=== PATIENT | female | born 1970 | race Caucasian/White ===

== ENCOUNTER → 2017-02-05 | Outpatient (CLI) | payer OTHER ==
[2017-02-05 19:43] LABS: Basophils % (A) 1 %; CH 32.3; CHCM 32.9; Eosinophils # (A) 0.1 k/uL (0-0.7); Eosinophils % (A) 2 %; HCT 40.7 % (34.0-46.0); HDW 2.37; HGB 13.6 gm/dL (11.4-16.0); Luc # (Auto) 0.11; Luc % (Auto) 2; Lymphocytes # (A) 1.4 k/uL (1.0-4.8); Lymphocytes % (A) 30 %; MCH 32.9 pg (25.0-35.0); MCHC 33.5 g/dL (31.0-37.0); MCV 98.3 fL (80.0-100.0); Mean Platelet Volume 8.2; Monocytes # (A) 0.3 k/uL (0-1.0); Monocytes % (A) 7 %; Neutrophils # (A) 2.8 k/uL (1.3-7.7); Neutrophils % (A) 58 %; RBC 4.14 m/uL (3.80-5.40); RDW 12.2 % (11.5-15.5); WBC 4.9 k/uL (3.8-10.6); WBC (Perox) 4.92
[2017-02-05 19:48] LABS: ALT 43 U/L (9-52); AST 28 U/L (14-36); Alkaline Phosphatase 61 U/L (38-126); Anion Gap 11 mmol/L; Blood Urea Nitrogen 6 mg/dL (7-17); Calcium 9.6 mg/dL (8.4-10.2); Carbon Dioxide 26 mmol/L (22-30); Chloride 101 mmol/L (98-107); Cholesterol 224 mg/dL (<200); Glucose 79 mg/dL (74-99); HDL Cholesterol 62 mg/dL (40-60); Non-African American GFR(MDRD) >60 (>60 ml/min/1.73 sqM); Potassium 4.5 mmol/L (3.5-5.1); Sodium 138 mmol/L (137-145); Total Bilirubin 0.3 mg/dL (0.2-1.3); Total Protein 7.3 g/dL (6.3-8.2)
== END | disposition home or self-care (01) ==
LOC: MMGSC 16:18
PROVIDERS: ATTEND Family Medicine
DX: Z00.00 Encounter for general adult medical examination without abnormal findings (principal)
CPT/HCPCS: 36415; 80053; 80061; 84439; 84443; 85025

== ENCOUNTER → 2018-02-20 | Outpatient (CLI) | payer OTHER ==
--- NOTE | 2018-02-20 21:55 | MR ---
EXAMINATION TYPE: MR cervical spine wo con DATE OF EXAM: 02/20/2018 COMPARISON: None HISTORY: Neck pain, Numbness in christel upper extremeties TECHNIQUE: Multiplanar, multisequence images of the cervical spine were acquired. C2-C3: Facet arthropathy greater on the left. There is uncovertebral joint hypertrophy bilaterally. M oderate left foraminal encroachment and mild right foraminal encroachment. C3-C4: Degenerative disc disease with uncovertebral joint hypertrophy and facet arthropathy greater o n the left with severe left-sided foraminal encroachment. Posterior spondylosis noted with central di sc broad-based bulging but no canal stenosis. Moderate right foraminal encroachment. C4-C5: Degenerative disc disease with facet arthropathy. There is uncovertebral joint hypertrophy. Mi ld bilateral foraminal encroachment but no canal stenosis. Broad-based central disc bulging. C5-C6: Severe degenerative disc disease with posterior disc osteophyte complex. Moderate right and se elise left foraminal encroachment. No Canal stenosis. C6-C7: Degenerative disc disease with posterior disc bulging and osteophyte complex. Uncovertebral philipp int hypertrophy and facet arthropathy greater on the left with severe left-sided foraminal encroachme nt and moderate right-sided encroachment. No Canal stenosis. C7-T1: Degenerative disc disease with disc bulging greater paracentrally and laterally to the right. There is mild to moderate right-sided foraminal encroachment. Cervical segments are intact. There is scoliotic curvature of the cervical thoracic spine. Cervical spinal cord is of normal signal. Craniovertebral junction relationships are within normal limits. IMPRESSION: 1. Severe multilevel degenerative disc disease with scoliotic curvature. There is multilevel disc bul ging and hypertrophic changes with cervical spondylosis. No canal stenosis or discrete herniation. Th e findings do result in significant bilateral multilevel foraminal encroachment with multilevel sever e left-sided foraminal encroachment.
== END | disposition home or self-care (01) ==
LOC: RADMRIMAIN 20:59
PROVIDERS: ATTEND Family Medicine
DX: M50.31 Other cervical disc degeneration, high cervical region (principal); M50.21 Other cervical disc displacement, high cervical region; M47.812 Spondylosis without myelopathy or radiculopathy, cervical region; M41.82 Other forms of scoliosis, cervical region
CPT/HCPCS: 72141